=== PATIENT | female | born 1980 | race African-American/Black ===

== ENCOUNTER 2016-11-22 10:56 | Emergency (ER) | payer SELFPAY ==
[~2016-11-22] VITALS: Ht 170.2 cm; Wt 117.9 kg
[~2016-11-22 10:56] MED LIST: ALPR0.25 PO; OXYC5CAP3 PO
--- NOTE | 2016-11-22 11:58 | EKG ---
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 MISSING LEAD V4. OTHERWISE NORMAL EKG Electronically Signed On 11-23-2016 21:16:30 CDT by Ansley Berry
--- NOTE | 2016-11-22 12:38 | RAD ---
Chest, 2 views, 11/22/2016: History: Cough, chest pain The heart size and pulmonary vascularity are normal. The lungs are clear. There is no evidence of pleural fluid. IMPRESSION: No acute cardiopulmonary abnormality is detected.
[2016-11-22] MEDS ORDERED: ACETAMINOPHEN 500 MG TABLET PO ONE (12:45)
--- NOTE | 2016-11-22 12:53 | ED.ADGEN ---
Past Medical History Past Medical History: Anxiety, Depression, Hypertension, Other Additional Past Medical Histor: chronic back pain; narcotic abuse treatment Past Surgical History: No Surgical History Alcohol Use: Occasionally Drug Use: None Social History Narrative: narcotic abuse 10 months ago Adult General Chief Complaint Chief Complaint: COUGH HPI HPI Patient is a 36 year old woman, history of hypertension, who recently completed a narcotics abuse program, who presents to the emergency department with complaint of several weeks of progressively worsening cough, she states the cough occurs at nighttime, and during the day, she'll have coughing "fits", associated with some shortness of breath. Denies any chest pain, states that she 'll have a headache with coughing, no weakness emesis or tingling, no rhinorrhea , no sore throat. Denies any sick contacts, states that she saw her primary care provider recently for the same issue and was told that this was "my body getting back to being normal", after she had finished her rehabilitation for narcotics abuse. Patient states the cough is nonproductive, no swelling extremities, recent travel or surgery, history of DVT or PE in herself members. Review of Systems Review of Systems Constitutional: Denies fever or chills. [] Eyes: Denies change in visual acuity. [] HENT: Denies nasal congestion or sore throat. [] Respiratory: Cough, no shortness of breath. Cardiovascular: Denies chest pain or edema. [] GI: Denies abdominal pain, nausea, vomiting, bloody stools or diarrhea. [] : Denies dysuria. [] Musculoskeletal: Denies back pain or joint pain. [] Integument: Denies rash. [] Neurologic: Denies headache, focal weakness or sensory changes. [] Endocrine: Denies polyuria or polydipsia. [] Lymphatic: Denies swollen glands. [] Psychiatric: Denies depression or anxiety. [] Current Medications Current Medications Current Medications Medications (Trade) Dose Ordered Sig/Yousuf Start Time Stop Time Status Last Admin Dose Admin Acetaminophen (Tylenol) 1,000 mg 1X ONCE 11/22/16 12:45 11/22/16 12:46 DC 11/22/16 13:18 1,000 MG Benzonatate (Tessalon Perle) 100 mg 1X ONCE 11/22/16 14:00 11/22/16 14:05 DC 11/22/16 14:20 100 MG Allergies Allergies Allergies Coded Allergies Type Severity Reaction Last Updated Verified Penicillins Allergy Intermediate Rash 01/25/16 Yes Physical Exam Physical Exam Constitutional: Well developed, well nourished, no acute distress, non-toxic appearance. [] HENT: Normocephalic, atraumatic, bilateral external ears normal, oropharynx moist, no oral exudates, nose normal. [] Eyes: PERRLA, EOMI, conjunctiva normal, no discharge. [] Neck: Normal range of motion, no tenderness, supple, no stridor. [] Cardiovascular:Heart rate regular rhythm, no murmur, S1, S2, rubs or gallops. [] Lungs & Thorax: Bilateral breath sounds clear to auscultation, no wheezing, rhonchi, rales. No chest or crepitus or tenderness. [] Abdomen: Bowel sounds normal, soft, no tenderness, no masses, no pulsatile masses. [] Skin: Warm, dry, no erythema, no rash. [] Back: No tenderness, no CVA tenderness. [] Extremities: No tenderness, no cyanosis, no clubbing, ROM intact, no edema. Negative Homans sign. [] Neurologic: Alert and oriented X 3, normal motor function, normal sensory function, no focal deficits noted. [] Psychologic: Affect normal, judgement normal, mood normal. [] Current Patient Data Vital Signs Vital Signs Date Time Temp Pulse Resp B/P Pulse Ox O2 Delivery O2 Flow Rate FiO2 11/22/16 14:30 68 18 142/92 98 Room Air 11/22/16 11:02 97.9 97.9 Lab Values Laboratory Tests Test 11/22/16 12:12 11/22/16 12:54 11/22/16 13:01 11/22/16 13:05 POC Urine HCG, Qualitative Hcg negative (Negative) Influenza Type A Antigen Negative (NEGATIVE) Influenza Type B Antigen Negative (NEGATIVE) White Blood Count 7.0x10^3/uL (4.0-11.0) Red Blood Count 4.45x10^6/uL (3.50-5.40) Hemoglobin 12.8g/dL (12.0-15.5) Hematocrit 38.9% (36.0-47.0) Mean Corpuscular Volume 87fL (79-100) Mean Corpuscular Hemoglobin 29pg (25-35) Mean Corpuscular Hemoglobin Concent 33g/dL (31-37) Red Cell Distribution Width 14.8% (11.5-14.5) H Platelet Count 366x10^3/uL (140-400) Neutrophils (%) (Auto) 74% (31-73) H Lymphocytes (%) (Auto) 18% (24-48) L Monocytes (%) (Auto) 6% (0-9) Eosinophils (%) (Auto) 1% (0-3) Basophils (%) (Auto) 1% (0-3) Neutrophils # (Auto) 5.2x10^3uL (1.8-7.7) Lymphocytes # (Auto) 1.3x10^3/uL (1.0-4.8) Monocytes # (Auto) 0.5x10^3/uL (0.0-1.1) Eosinophils # (Auto) 0.1x10^3/uL (0.0-0.7) Basophils # (Auto) 0.1x10^3/uL (0.0-0.2) Urine Collection Type Unknown Urine Color Yellow Urine Clarity Clear Urine pH 7.0 Urine Specific [place] 1.020 Urine Protein Negativemg/dL (NEG-TRACE) Urine Glucose (UA) Negativemg/dL (NEG) Urine Ketones (Stick) Negativemg/dL (NEG) Urine Blood Negative (NEG) Urine Nitrite Negative (NEG) Urine Bilirubin Negative (NEG) Urine Urobilinogen Dipstick 0.2mg/dL (0.2 mg/dL) Urine Leukocyte Esterase Negative (NEG) Urine RBC 0/HPF (0-2) Urine WBC 1-4/HPF (0-4) Urine Squamous Epithelial Cells Mod/LPF Urine Bacteria Few/HPF (0-FEW) Urine Mucus Mod/LPF Urine Opiates Screen Neg (NEG) Urine Methadone Screen Neg (NEG) Urine Barbiturates Neg (NEG) Urine Phencyclidine Screen Neg (NEG) Urine Amphetamine/Methamphetamine Neg (NEG) Urine Benzodiazepines Screen Neg (NEG) Urine Cocaine Screen Neg (NEG) Urine Cannabinoids Screen Neg (NEG) Urine Ethyl Alcohol Neg (NEG) Test 11/22/16 13:25 Sodium Level 140mmol/L (136-145) Potassium Level 4.2mmol/L (3.5-5.1) Chloride Level 103mmol/L (98-107) Carbon Dioxide Level 31mmol/L (21-32) Anion Gap 6 (6-14) Blood Urea Nitrogen 15mg/dL (7-20) Creatinine 0.8mg/dL (0.6-1.0) Estimated GFR (Cockcroft-Gault) 98.8 Glucose Level 107mg/dL (70-99) H Calcium Level 9.0mg/dL (8.5-10.1) Laboratory Tests 11/22/16 13:01 Laboratory Tests 11/22/16 13:25 EKG EKG ECG: Rhythm strip: [] Rate 70 beats/minute, sinus rhythm, no ectopy. As interpreted by me. Radiology/Procedures Radiology/Procedures [] [address] [place], [place] [id number] IMAGING REPORT Signed PATIENT: SALIMA KIM ACCOUNT: [id number] : 1980 LOCATION: ER AGE: 36 SEX: F EXAM STATUS: REG ER ORD. PHYSICIAN: JESSIE PRECIADO DO REASON: SOA PROCEDURE: CHEST PA & LATERAL Chest, 2 views, 11/22/2016: History: Cough, chest pain The heart size and pulmonary vascularity are normal. The lungs are clear. There is no evidence of pleural fluid. IMPRESSION: No acute cardiopulmonary abnormality is detected. DICTATED and SIGNED BY: ORION GALLOWAY MD DATE: 11/22/16 1235 CC: JESSIE PRECIADO DO; NO PCP ~ Course & Med Decision Making Course & Med Decision Making Pertinent Labs and Imaging studies reviewed. (See chart for details) Patient well-appearing, normal oxygen saturation, no respiratory distress, no coughing in the ED. Due to complaints, patient received laboratory studies, x- ray, which not reveal any evidence of concerning findings. Patient received Tessalon Perle in the ED. I did discuss with patient importance of follow-up with her primary care provider, and concerning symptoms to prompt return to the ED. Discussed use of supportive care, patient discharged home in stable condition with pressure from her Tessalon Perle and plan as above. Dragon Disclaimer Dragon Disclaimer This electronic medical record was generated, in whole or in part, using a voice recognition dictation system. Departure Impression: Primary Impression: Cough Disposition: 01 HOME, SELF-CARE Condition: IMPROVED Scripts Benzonatate (Tessalon Perle)100 Mg [id number] Mg PO TID PRN COUGH #12 CAP Prov:JESSIE PRECIADO DO 11/22/16 JESSIE PRECIADO DO Nov 22, 2016 12:53
[2016-11-22 13:11] LABS: BASO # 0.1 x10^3/uL (0.0-0.2); BASO % 1 % (0-3); EOS % 1 % (0-3); HEMATOCRIT 38.9 % (36.0-47.0); HEMOGLOBIN 12.8 g/dL (12.0-15.5); LYMPH # 1.3 x10^3/uL (1.0-4.8); LYMPH % 18 % (24-48); MEAN CORPUSCULAR HEMOGLOBIN 29 pg (25-35); MEAN CORPUSCULAR HGB CONC 33 g/dL (31-37); MEAN CORPUSCULAR VOLUME 87 fL (79-100); MONO % 6 % (0-9); NEUT % 74 % (31-73); PLATELET COUNT 366 x10^3/uL (140-400); RED BLOOD COUNT 4.45 x10^6/uL (3.50-5.40); RED CELL DISTRIBUTION WIDTH 14.8 % (11.5-14.5)
[2016-11-22 13:26] LABS: BILIRUBIN,URINE NEGATIVE (NEG); GLUCOSE,URINE NEGATIVE (NEG); NITRITE,URINE NEGATIVE (NEG); PROTEIN,URINE NEGATIVE (NEG-TRACE); UROBILINOGEN,URINE 0.2 mg/dL (0.2 mg/dL)
[2016-11-22 13:29] LABS: OBC FLU VALID
[2016-11-22 13:32] LABS: BARBITURATES NEG (NEG); BENZODIAZEPINES NEG (NEG); CANNABINOIDS NEG (NEG); COCAINE NEG (NEG); METHADONE NEG (NEG); OPIATES NEG (NEG); PHENCYCLIDINE NEG (NEG)
[2016-11-22 13:35] LABS: BACTERIA,URINE FEW /HPF (0-FEW); ETHANOL, URINE NEG (NEG); RBC,URINE 0 /HPF (0-2); SQUAMOUS EPITHELIAL CELL,UR MOD /LPF
[2016-11-22 13:45] LABS: CREATININE 0.8 mg/dL (0.6-1.0); GFR 98.8; POTASSIUM 4.2 mmol/L (3.5-5.1)
[2016-11-22] MEDS ORDERED: BENZONATATE 100 MG CAPSULE. PO ONE (14:00)
[2016-11-22] MEDS ORDERED: BENZ100C PO (14:20)
[2016-11-22 14:30] VITALS: BP 142/92
== END 2016-11-22 14:44 | disposition home or self-care (01) ==
LOC: ER 10:56
DX: R05 Cough (principal); R06.02 Shortness of breath; R07.89 Other chest pain; Z88.0 Allergy status to penicillin; I10 Essential (primary) hypertension; G89.29 Other chronic pain; F11.10 Opioid abuse, uncomplicated; F41.9 Anxiety disorder, unspecified
CPT/HCPCS: 36415; 71020; 80048; 81001; 81025; 85027; 87804; 93005; 99285; G0481

== ENCOUNTER 2021-12-03 09:33 | Emergency (ER) | payer OTHER ==
[~2021-12-03] VITALS: Ht 170.2 cm; Wt 93.8 kg
[~2021-12-03 09:33] MED LIST changes: +BENZ100C PO; +OXYC5CAP PO; -OXYC5CAP3 PO
[2021-12-03] MEDS ORDERED: IV NORMAL SALINE 1000ML BAG 1,000 ML IV ONE (10:00)
[2021-12-03 11:12] LABS: BASO % 1 % (0-3); EOS # 0.1 x10^3/uL (0.0-0.7); EOS % 1 % (0-3); HEMATOCRIT 39.7 % (36.0-47.0); LYMPH # 1.3 x10^3/uL (1.0-4.8); LYMPH % 13 % (24-48); MEAN CORPUSCULAR HEMOGLOBIN 29 pg (25-35); MEAN CORPUSCULAR HGB CONC 33 g/dL (31-37); MEAN CORPUSCULAR VOLUME 88 fL (79-100); MONO # 0.5 x10^3/uL (0.0-1.1); MONO % 5 % (0-9); NEUT % 80 % (31-73); PLATELET COUNT 521 x10^3/uL (140-400); RED BLOOD COUNT 4.52 x10^6/uL (3.50-5.40); RED CELL DISTRIBUTION WIDTH 18.3 % (11.5-14.5); WHITE BLOOD COUNT 9.9 x10^3/uL (4.0-11.0)
[2021-12-03 11:46] LABS: CREATININE 0.8 mg/dL (0.6-1.0); GFR 96.1; POTASSIUM 3.8 mmol/L (3.5-5.1)
[2021-12-03 11:52] LABS: ALBUMIN 3.8 g/dL (3.4-5.0); ALBUMIN/GLOBULIN RATIO 0.8 (1.0-1.7); TOTAL BILIRUBIN 0.6 mg/dL (0.2-1.0); TOTAL PROTEIN 8.3 g/dL (6.4-8.2)
--- NOTE | 2021-12-03 13:05 | EKG ---
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
[2021-12-03 13:28] LABS: BACTERIA,URINE 0 /HPF (0-FEW); BARBITURATES NEG (NEG); BENZODIAZEPINES NEG (NEG); CANNABINOIDS NEG (NEG); COCAINE NEG (NEG); HYALINE CASTS, URINE OCCASIONAL /HPF; METHADONE NEG (NEG); OPIATES NEG (NEG); PHENCYCLIDINE NEG (NEG); RBC,URINE 0 /HPF (0-2); WBC,URINE 0 /HPF (0-4)
[2021-12-03 13:29] LABS: AMPHETAMINE/METHAMPHETAMINE POS (NEG)
[2021-12-03] MEDS ORDERED: ONDANSETRON PF 4 MG/2 ML VIAL. IVP ONE (13:30)
--- NOTE | 2021-12-03 13:55 | RAD ---
RS Compliance Statement: One or more of the following individualized dose reduction techniques were utilized for this examinat ion: 1. Automated exposure control 2. Adjustment of the mA and/or kV according to patient size 3. Use of iterative reconstruction technique CT head without contrast 12/03/2021 1:31 PM INDICATION: Near syncope COMPARISON: None available TECHNIQUE: Multiple axial CT images of the head were obtained from skull base through the vertex with out intravenous contrast. FINDINGS: Head: Ventricles, sulci and basal cisterns are within normal limits. There is no hydrocephalus. [place]-white matter differentiation is normal. There is no acute intracranial hemorrhage. There is no mass, mass e ffect or midline shift. Posterior fossa is normal in appearance. Visualized portions of the orbits are normal. Paranasal sinuses are well aerated. Mastoid air cells a re well aerated. Scalp and calvaria are normal. There is aerated right petrous apex. IMPRESSION: No acute intracranial hemorrhage. Electronically signed by: Lyubov Rockwell MD (12/03/2021 1:53 PM) [id number]
[2021-12-03 15:38] VITALS: BP 139/76
--- NOTE | 2021-12-03 15:53 | PHYS DOC ---
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 Sosa at the [facility], is also on 0.5 mg Ativan twice a day, states she does smoke marijuana, states that she smoked some marijuana approximately 2 days ago and has been unable to sleep since, patient fears she may have been given some other illicit drug instead of marijuana. Patient reports she has periods in which she feels faint but has not had a syncopal episode. Patient reports her anxiety is extremely high at this point however denies homicidal or suicidal ideation, patient reports her last menstrual cycle was 2 weeks ago with normal duration of flow. Patient denies chest pains, chest palpitations, chest or nasal congestion, recent fever or chills, abdominal pain, nausea, vomiting, diarrhea, denies other physical co mplaints or physical concerns. Review of Systems: Review of Systems: 14 body systems of review of systems have been reviewed. See HPI for pertinent positives and negative responses, otherwise all other systems are negative, nonpertinent or noncontributory. Constitutional: Negative except as outlined in HPI above. Skin: Negative except as outlined in HPI above. Eyes: Negative except as outlined in HPI above. HENT: Negative except as outlined in HPI above. Respiratory: Negative except as outlined in HPI above. Cardiovascular: Negative except as outlined in HPI above. GI: Negative except as outlined in HPI above. : Negative except as outlined in HPI above. Musculoskeletal: Negative except as outlined in HPI above. Integument: Negative except as outlined in HPI above. Neurologic: Negative except as outlined in HPI above. Endocrine: Negative except as outlined in HPI above. Lymphatic: Negative except as outlined in HPI above. Psychiatric: Negative except as outlined in HPI above. Heart Score: C/O Chest Pain: No Risk Factors: Risk Factors: DM, Current or recent (<one month) smoker, HTN, HLP, family history of CAD, obesity. Risk Scores: Score 0 - 3: 2.5% MACE over next 6 weeks - Discharge Home Score 4 - 6: 20.3% MACE over next 6 weeks - Admit for Clinical Observation Score 7 - 10: 72.7% MACE over next 6 weeks - Early Invasive Strategies Current Medications: Current Medications Medications (Trade) Dose Ordered Sig/Yousuf Start Time Stop Time Status Last Admin Dose Admin Lorazepam (Ativan Inj) 1 mg 1X ONCE 12/03/21 15:15 12/03/21 15:16 DC 12/03/21 15:09 1 MG Ondansetron HCl (Zofran) 4 mg 1X ONCE 12/03/21 13:30 12/03/21 13:31 DC 12/03/21 13:46 4 MG Sodium Chloride 1,000 ml @ 1,000 mls/hr 1X ONCE 12/03/21 10:00 12/03/21 11:10 DC 12/03/21 10:45 1,000 MLS/HR Allergies: Allergies: Allergies Coded Allergies Type Severity Reaction Last Updated Verified Penicillins Allergy Intermediate Rash 01/25/16 Yes Physical Exam: PE: Constitutional: Well developed, well nourished, no acute distress, non-toxic appearance. 41-year-old female in no apparent distress. HENT: Normocephalic, atraumatic. Eyes: Conjunctiva normal, no discharge. Neck: Normal range of motion, no stridor. Cardiovascular: No cyanosis appreciated, distal cap refill less than 2 seconds. Lungs & Thorax: Patient is in no respiratory distress, no audible adventitious lung sounds appreciated. Abdomen: Nontender to palpation, no abnormalities appreciated. Old surgical scars present. Skin: Warm, dry, no erythema, no rash. Back: No tenderness, no deformities. Extremities: No tenderness, no cyanosis, no clubbing, ROM intact, no edema. Neurologic: Alert and oriented X 3, normal motor function, normal sensory function, no focal deficits noted. Psychologic: Affect anxious, judgement normal, mood normal. Current Patient Data: Labs: Laboratory Tests Test 12/03/21 10:30 12/03/21 13:05 12/03/21 13:13 White Blood Count 9.9 x10^3/uL (4.0-11.0) Red Blood Count 4.52 x10^6/uL (3.50-5.40) Hemoglobin 13.0 g/dL (12.0-15.5) Hematocrit 39.7 % (36.0-47.0) Mean Corpuscular Volume 88 fL (79-100) Mean Corpuscular Hemoglobin 29 pg (25-35) Mean Corpuscular Hemoglobin Concent 33 g/dL (31-37) Red Cell Distribution Width 18.3 % (11.5-14.5) H Platelet Count 521 x10^3/uL (140-400) H Neutrophils (%) (Auto) 80 % (31-73) H Lymphocytes (%) (Auto) 13 % (24-48) L Monocytes (%) (Auto) 5 % (0-9) Eosinophils (%) (Auto) 1 % (0-3) Basophils (%) (Auto) 1 % (0-3) Neutrophils # (Auto) 8.0 x10^3/uL (1.8-7.7) H Lymphocytes # (Auto) 1.3 x10^3/uL (1.0-4.8) Monocytes # (Auto) 0.5 x10^3/uL (0.0-1.1) Eosinophils # (Auto) 0.1 x10^3/uL (0.0-0.7) Basophils # (Auto) 0.0 x10^3/uL (0.0-0.2) Sodium Level 137 mmol/L (136-145) Potassium Level 3.8 mmol/L (3.5-5.1) Chloride Level 100 mmol/L (98-107) Carbon Dioxide Level 21 mmol/L (21-32) Anion Gap 16 (6-14) H Blood Urea Nitrogen 13 mg/dL (7-20) Creatinine 0.8 mg/dL (0.6-1.0) Estimated GFR (Cockcroft-Gault) 96.1 BUN/Creatinine Ratio 16 (6-20) Glucose Level 59 mg/dL (70-99) L Calcium Level 9.0 mg/dL (8.5-10.1) Total Bilirubin 0.6 mg/dL (0.2-1.0) Aspartate Amino Transferase (AST) 48 U/L (15-37) H Alanine Aminotransferase (ALT) 45 U/L (14-59) Alkaline Phosphatase 75 U/L (46-116) Troponin I High Sensitivity 9 ng/L (4-50) Total Protein 8.3 g/dL (6.4-8.2) H Albumin 3.8 g/dL (3.4-5.0) Albumin/Globulin Ratio 0.8 (1.0-1.7) L Ethyl Alcohol Level 133 mg/dL (0-10) H Urine Collection Type Unknown Urine Color (Auto) Yellow Urine Turbidity Clear Urine pH (Auto) 5.0 (<5.0-8.0) Urine Specific [place] 1.026 (1.000-1.030) Urine Protein (Auto) 30 mg/dL (Negative) Urine Glucose (Auto)(UA) Negative mg/dL (Negative) Urine Ketones (Auto) 60 mg/dL (Negative) Urine Blood (Auto) Negative (Negative) Urine Nitrite Negative (Negative) Urine Bilirubin (Auto) Negative (Negative) Urine Urobilinogen (Auto) Normal mg/dL (Normal) Urine Leukocyte Esterase (Auto) Negative (Negative) Urine RBC 0 /HPF (0-2) Urine WBC 0 /HPF (0-4) Urine Squamous Epithelial Cells Few /LPF Urine Bacteria 0 /HPF (0-FEW) Urine Hyaline Casts Occasional /HPF Urine Mucus Slight /LPF Urine Opiates Screen Neg (NEG) Urine Methadone Screen Neg (NEG) Urine Barbiturates Neg (NEG) Urine Phencyclidine Screen Neg (NEG) Urine Amphetamine/Methamphetamine Pos (NEG) Urine Benzodiazepines Screen Neg (NEG) Urine Cocaine Screen Neg (NEG) Urine Cannabinoids Screen Neg (NEG) Urine Ethyl Alcohol Pos (NEG) POC Urine HCG, Qualitative Hcg negative (Negative) Laboratory Tests 12/03/21 10:30 Laboratory Tests 12/03/21 10:30 Vital Signs: Vital Signs Date Time Temp Pulse Resp B/P (MAP) Pulse Ox O2 Delivery O2 Flow Rate FiO2 12/03/21 09:46 98.2 78 18 129/89 (102) 98 Room Air 98.2 EKG: EKG: EKG performed at 1018 by ED nursing staff shows a normal sinus rhythm with a leftward axis deviation otherwise no ectopy appreciated, heart rate 73 bpm, IN interval point 134, QTc interval 0.451, no acute STEMI, no ACS, no acute ischemia appreciated, EKG interpreted by ED attending physician Dr. Baltazar. Radiology/Procedures: Radiology/Procedures: [] Course & Med Decision Making: Course & Med Decision Making Pertinent Labs and Imaging studies reviewed. (See chart for details) 41-year-old female, vital signs reviewed, presents emergency department concer laura anxiety attack, patient's physical examination consistent with acute anxiety attack, will order CBC, CMP, with patient's worries about being given an illicit drug and told it was marijuana will order urinalysis assay, twelve-lead EKG, high-sensitivity troponin I, urine drug screen, alcohol level, 1 L normal saline, IV Ativan, CT head without contrast, IV Zofran for nausea. Patient's labs unremarkable except for alcohol level elevated, patient has methamphetamines in urine, discussed with patient, patient states she does not use methamphetamines it must of been in the marijuana she smoked 2 days ago. Discussed with patient strict follow-up with primary care this Monday, patient states she has an appointment this Monday for reevaluation of her psychiatric medications. Patient states she feels much better now after receiving Ativan medication, continues to deny homicidal or suicidal ideations, discussed strict return to ER precautions and concerns, patient gave verbal understanding of and is amenable to ED discharge planning. Discussed with the patient all findings and diagnostic testing as well as the need to follow-up with their primary care provider for further evaluation and treatment or return to the ED if any new or worsening symptoms. Strict return precautions were also discussed at length, the patient voiced understanding and agreement with the discharge planning. The patient was nontoxic in appearance, in no apparent distress, and hemodynamically stable at the time of disposition. Kyara Disclaimer: Kyara Disclaimer: This electronic medical record was generated, in whole or in part, using a voice recognition dictation system. Departure Departure Impression: Primary Impression: Anxiety Disposition: HOME / SELF CARE / HOMELESS Condition: GOOD Referrals: NO PCP (PCP) Patient Instructions: Anxiety and Panic Attacks Additional Instructions: You were seen today in the emergency department for anxiety attack. You were given Ativan. This seems to help well. Please follow-up with your primary care physician for ongoing anxiety medication management. I will give you a few tablets to help for over the weekend, please follow-up with your doctor this coming Monday for refills on your medications. Thank you for visiting our Emergency Department. It was a pleasure taking care of you today in the emergency department and we appreciate you trusting us with your care. If any additional problems come up don't hesitate to return to visit us. Please follow up with your primary care provider so they can plan additional care if needed and know about the problem that you had. If symptoms worsen come back to the Emergency Department. Any concerning symptoms that start such as chest pain, shortness of air, weakness or numbness on one side of the body, running high fevers or any other concerning symptoms return to the ER. Scripts Lorazepam (ATIVAN) 1 Mg Tablet 1 MG PO DAILY for anxiety, #6 TAB 0 Refills Prov: ERIK MONTELONGO APRN 12/03/21 ERIK MONTELONGO APRN Dec 03, 2021 15:53
[2021-12-03] MEDS ORDERED: LORA-434 PO (15:59)
== END 2021-12-03 16:07 | disposition home or self-care (01) ==
LOC: ER 09:33
DX: F41.9 Anxiety disorder, unspecified (principal); I10 Essential (primary) hypertension; G89.29 Other chronic pain; F17.200 Nicotine dependence, unspecified, uncomplicated; Z88.0 Allergy status to penicillin
CPT/HCPCS: 36415; 70450; 80053; 80307; 81001; 81025; 84484; 85025; 93005; 96361; 96374; 96375; 96376; 99285; G0480; J2060; J2405; J7030